=== PATIENT | female | born 1990 | race African-American/Black ===

== ENCOUNTER 2017-06-23 18:59 | Emergency (ER) | payer MEDICAID ==
[~2017-06-23] VITALS: Ht 162.6 cm; Wt 92.1 kg
[2017-06-23 19:31] VITALS: BP 149/93
[2017-06-23 20:22] LABS: Basophils # (auto) 0.1 uL; Basophils % (auto) 0.6 % (0.0-2.0); Eosinophils # (auto) 0.2 uL; Eosinophils % (auto) 1.5 % (0.0-7.0); Hematocrit 45.1 % (36.0-46.0); Hemoglobin 15.2 g/dL (12.2-16.2); Lymphocytes # (auto) 3.3 uL; Lymphocytes % (auto) 30.3 % (10.0-50.0); Mean Corpuscular Hemoglobin 30.7 pg (28.0-32.0); Mean Corpuscular Hgb Conc. 33.7 g/dL (32.0-36.0); Monocytes # (auto) 1.3 uL; Monocytes % (auto) 11.7 % (0.0-12.0); Neutrophils % (auto) 55.9 % (37.0-80.0); Nucleated Red Blood Cells % 0.2 %; Platelet Count (auto) 414 10^3/uL (140-450); Red Blood Cells 4.95 10^6/uL (4.0-5.20); Red Cell Distribution Width 13.9 % (11.8-14.3); White Blood Cell 10.7 10^3/uL (4.4-10.8)
[2017-06-23 20:36] LABS: Urine Blood 2+ /uL (Negative); Urine Specific Gravity 1.022 (1.001-1.035)
[2017-06-23 20:47] LABS: Albumin 3.9 g/dL (3.4-5.0); BUN/Creatinine Ratio 8.3; Bilirubin, Total 0.6 mg/dL (0.2-1.0); Potassium 3.7 mmol/L (3.5-5.1); Total Protein 8.2 g/dL (6.4-8.2)
[2017-06-23 20:52] LABS: Urine WBC 4 /hpf (0 - 5)
[2017-06-23 20:53] LABS: Urine Bacteria FEW /hpf (None Seen)
== END 2017-06-24 01:32 | disposition left against medical advice (07) ==
LOC: ER 18:59
DX: O26.859 Spotting complicating pregnancy, unspecified trimester (principal); Z3A.00 Weeks of gestation of pregnancy not specified; Z53.21 Procedure and treatment not carried out due to patient leaving prior to being seen by health care provider
CPT/HCPCS: 36415; 80053; 81001; 84702; 85025